=== PATIENT | female | born 1930 | race Caucasian/White ===

== ENCOUNTER 2017-07-31 16:55 | Inpatient (IN) | payer MEDICARE, OTHER ==
[2017-07-31] MEDS: IV NORMAL SALINE 1000ML BAG 1,000 ML IV (17:29)
[2017-07-31] MEDS: METOPROLOL TARTRATE 5 MG/5 ML VIAL. IVP (17:32)
[2017-07-31 18:08] LABS: ADD MAN DIFF? NO
[2017-07-31 18:10] LABS: BASO % 0 % (0-3); EOS % 0 % (0-3); HEMATOCRIT 43.3 % (36.0-47.0); HEMOGLOBIN 13.3 g/dL (12.0-15.5); LYMPH # 0.6 x10^3/uL (1.0-4.8); LYMPH % 8 % (24-48); MEAN CORPUSCULAR HEMOGLOBIN 28 pg (25-35); MEAN CORPUSCULAR HGB CONC 31 g/dL (31-37); MEAN CORPUSCULAR VOLUME 91 fL (79-100); MONO # 0.6 x10^3/uL (0.0-1.1); MONO % 7 % (0-9); NEUT # 7.1 x10^3uL (1.8-7.7); NEUT % 85 % (31-73); PLATELET COUNT 163 x10^3/uL (140-400); RED BLOOD COUNT 4.76 x10^6/uL (3.50-5.40); RED CELL DISTRIBUTION WIDTH 20.6 % (11.5-14.5); WHITE BLOOD COUNT 8.4 x10^3/uL (4.0-11.0)
[2017-07-31 18:21] LABS: ANION GAP 14 (6-14); BLOOD UREA NITROGEN 30 mg/dL (7-20); BUN/CREATININE RATIO 19 (6-20); CALCIUM 9.2 mg/dL (8.5-10.1); CARBON DIOXIDE 23 mmol/L (21-32); CHLORIDE 106 mmol/L (98-107); CREATININE 1.6 mg/dL (0.6-1.0); GFR 30.5; GLUCOSE 96 mg/dL (70-99); POTASSIUM 4.9 mmol/L (3.5-5.1); SODIUM 143 mmol/L (136-145)
[2017-07-31 18:27] LABS: ALBUMIN 3.4 g/dL (3.4-5.0); ALBUMIN/GLOBULIN RATIO 1.1 (1.0-1.7); ALK PHOS 71 U/L (46-116); ALT (SGPT) 22 U/L (14-59); AST (SGOT) 32 U/L (15-37); MAGNESIUM 2.1 mg/dL (1.8-2.4); TOTAL BILIRUBIN 0.5 mg/dL (0.2-1.0); TOTAL PROTEIN 6.6 g/dL (6.4-8.2)
[2017-07-31 18:29] LABS: TROPONINI 0.019 ng/mL (0.000-0.055)
[2017-07-31 18:34] LABS: CREATINE KINASE 100 U/L (26-192)
[2017-07-31 18:34] LABS: NT-PRO BNP 24587 pg/mL (0-449)
[2017-07-31 18:37] LABS: PLT ESTIMATE ADEQUATE (ADEQUATE)
[2017-07-31 18:38] LABS: ANISOCYTOSIS MOD; OVALOCYTES FEW; POIKILOCYTOSIS SLIGHT
[2017-07-31] MEDS ORDERED: IV NORMAL SALINE 1000ML BAG 1,000 ML IV (19:07)
[2017-07-31] MEDS ORDERED: ACETAMINOPHEN 325 MG TABLET. PO (19:15)
[2017-07-31] MEDS ORDERED: ONDANSETRON PF 4 MG/2 ML VIAL. IV (19:15)
[2017-07-31] MEDS ORDERED: METOPROLOL TART IMMED RELEASE 50 MG TABLET. PO (21:45)
[2017-08-01 03:31] LABS: ADD MAN DIFF? NO
[2017-08-01 03:33] LABS: BASO % 0 % (0-3); EOS # 0.1 x10^3/uL (0.0-0.7); EOS % 1 % (0-3); HEMATOCRIT 41.8 % (36.0-47.0); HEMOGLOBIN 12.8 g/dL (12.0-15.5); LYMPH # 0.7 x10^3/uL (1.0-4.8); LYMPH % 9 % (24-48); MEAN CORPUSCULAR HEMOGLOBIN 28 pg (25-35); MEAN CORPUSCULAR HGB CONC 31 g/dL (31-37); MEAN CORPUSCULAR VOLUME 91 fL (79-100); MONO # 0.6 x10^3/uL (0.0-1.1); MONO % 8 % (0-9); NEUT # 6.1 x10^3uL (1.8-7.7); NEUT % 82 % (31-73); PLATELET COUNT 159 x10^3/uL (140-400); RED BLOOD COUNT 4.59 x10^6/uL (3.50-5.40); RED CELL DISTRIBUTION WIDTH 20.3 % (11.5-14.5); WHITE BLOOD COUNT 7.4 x10^3/uL (4.0-11.0)
[2017-08-01] MEDS: METOPROLOL TART IMMED RELEASE 50 MG TABLET. PO ×3 (03:41→12:00)
[2017-08-01 03:54] LABS: ANION GAP 8 (6-14); BLOOD UREA NITROGEN 28 mg/dL (7-20); CALCIUM 8.7 mg/dL (8.5-10.1); CARBON DIOXIDE 27 mmol/L (21-32); CHLORIDE 109 mmol/L (98-107); CREATININE 1.6 mg/dL (0.6-1.0); GFR 30.5; GLUCOSE 91 mg/dL (70-99); POTASSIUM 4.3 mmol/L (3.5-5.1); SODIUM 144 mmol/L (136-145)
[2017-08-01 09:18] LABS: THYROID STIM HORMONE (TSH) 2.517 uIU/mL (0.358-3.74)
[2017-08-01] MEDS: METOPROLOL TARTRATE 5 MG/5 ML VIAL. IVP ×3 (10:06→14:51)
[2017-08-01] MEDS: ALPRAZolam 0.5 MG TABLET PO ×2 (10:09→10:26)
[2017-08-01] MEDS: ASPIRIN CHEWABLE 81 MG TABLET. PO (10:09)
[2017-08-01] MEDS: LEVOTHYROXINE 88 MCG TABLET PO (10:09)
[2017-08-01] MEDS: METOPROLOL TART IMMED RELEASE 25 MG TABLET. PO ×3 (10:09→23:10)
[2017-08-01] MEDS: ENOXAPARIN 30 MG/0.3 ML SYRINGE. SQ (10:10)
[2017-08-01] MEDS: traMADol 50 MG TABLET PO ×2 (10:14→22:06)
[2017-08-01] MEDS ORDERED: MAGNESIUM SULFATE 2GM 50 ML IV (11:00)
[2017-08-01 11:08] LABS: URIC ACID 7.6 mg/dL (2.6-6.0)
[2017-08-01 13:13] LABS: CHOLESTEROL 114 mg/dL (0-200); HDLC 43 mg/dL (40-60); LDLC 54 mg/dL (0-100); NON-HDL CHOLESTEROL 71 mg/dL (0-129); TRIGLYCERIDES 84 mg/dL (0-150); VLDLC 17 mg/dL (0-40)
[2017-08-01 13:15] LABS: CHOLESTEROL/HDL RATIO 2.7
[2017-08-01] MEDS: FUROSEMIDE 40 MG/4 ML VIAL. IVP (14:44)
[2017-08-01 15:08] LABS: INR 1.2 (0.8-1.1); PROTHROMBIN TIME PATIENT 15.1 SEC (11.7-14.0)
[2017-08-01] MEDS: DIGOXIN IV 500 MCG/2 ML AMPUL. IV (16:29)
[2017-08-01 16:32] LABS: BILIRUBIN,URINE SMALL (NEG); CLARITY,URINE CLEAR; COLOR,URINE AMBER; GLUCOSE,URINE NEGATIVE (NEG); NITRITE,URINE NEGATIVE (NEG); PH,URINE 5.5; PROTEIN,URINE 30 mg/dL (NEG-TRACE); UROBILINOGEN,URINE 0.2 mg/dL (0.2 mg/dL)
[2017-08-01 16:59] LABS: BACTERIA,URINE 0 /HPF (0-FEW); HYALINE CASTS, URINE MODERATE /HPF; RBC,URINE 0 /HPF (0-2); SQUAMOUS EPITHELIAL CELL,UR OCC /LPF
[2017-08-01] MEDS: ALPRAZolam 0.25 MG TABLET PO (22:06)
[2017-08-02] MEDS: METOPROLOL TART IMMED RELEASE 25 MG TABLET. PO ×3 (06:08→18:31)
[2017-08-02] MEDS: LEVOTHYROXINE 88 MCG TABLET PO (06:08)
[2017-08-02 06:17] LABS: HEMOGLOBIN 13.2 g/dL (12.0-15.5)
[2017-08-02 07:16] LABS: ALBUMIN 2.9 g/dL (3.4-5.0); ANION GAP 10 (6-14); BLOOD UREA NITROGEN 34 mg/dL (7-20); CARBON DIOXIDE 26 mmol/L (21-32); CHLORIDE 112 mmol/L (98-107); CREATININE 1.8 mg/dL (0.6-1.0); GFR 26.6; GLUCOSE 77 mg/dL (70-99); MAGNESIUM 2.1 mg/dL (1.8-2.4); SODIUM 148 mmol/L (136-145)
[2017-08-02 07:28] LABS: POTASSIUM 6.1 mmol/L (3.5-5.1)
[2017-08-02] MEDS: SODIUM POLYSTYRENE SULFONATE 15 GM/60 ML ORAL.SUSP. PO (08:00)
[2017-08-02] MEDS: FUROSEMIDE 40 MG/4 ML VIAL. IVP ×2 (08:19→14:02)
[2017-08-02] MEDS: ALPRAZolam 0.25 MG TABLET PO ×3 (08:20→21:15)
[2017-08-02] MEDS: ASPIRIN CHEWABLE 81 MG TABLET. PO (08:20)
[2017-08-02] MEDS: ENOXAPARIN 30 MG/0.3 ML SYRINGE. SQ (08:20)
[2017-08-02 12:34] LABS: POTASSIUM 5.1 mmol/L (3.5-5.1)
[2017-08-02 14:24] LABS: TOTAL PROTEIN CREATININE RATIO 289 mg/g creat (0-200); UR CREATININE RD 202.1 mg/dL (Not Estab.); UR PROTEIN RD 58.5 mg/dL (Not Estab.)
[2017-08-02] MEDS: traMADol 50 MG TABLET PO (21:15)
[2017-08-03 05:15] LABS: BASO % 0 % (0-3); EOS # 0.1 x10^3/uL (0.0-0.7); EOS % 1 % (0-3); HEMATOCRIT 41.5 % (36.0-47.0); HEMOGLOBIN 13.2 g/dL (12.0-15.5); LYMPH # 0.4 x10^3/uL (1.0-4.8); LYMPH % 7 % (24-48); MEAN CORPUSCULAR HEMOGLOBIN 28 pg (25-35); MEAN CORPUSCULAR HGB CONC 32 g/dL (31-37); MEAN CORPUSCULAR VOLUME 88 fL (79-100); MONO # 0.4 x10^3/uL (0.0-1.1); MONO % 7 % (0-9); NEUT # 5.3 x10^3uL (1.8-7.7); NEUT % 85 % (31-73); PLATELET COUNT 138 x10^3/uL (140-400); RED BLOOD COUNT 4.72 x10^6/uL (3.50-5.40); RED CELL DISTRIBUTION WIDTH 19.4 % (11.5-14.5); WHITE BLOOD COUNT 6.3 x10^3/uL (4.0-11.0)
[2017-08-03 05:23] LABS: ADD MAN DIFF? YES
[2017-08-03 05:36] LABS: ALBUMIN 2.7 g/dL (3.4-5.0); ANION GAP 8 (6-14); BLOOD UREA NITROGEN 38 mg/dL (7-20); CALCIUM 8.3 mg/dL (8.5-10.1); CARBON DIOXIDE 33 mmol/L (21-32); CHLORIDE 104 mmol/L (98-107); CREATININE 1.7 mg/dL (0.6-1.0); GFR 28.4; GLUCOSE 57 mg/dL (70-99); MAGNESIUM 1.6 mg/dL (1.8-2.4); PHOSPHORUS 3.6 mg/dL (2.6-4.7); POTASSIUM 3.8 mmol/L (3.5-5.1); SODIUM 145 mmol/L (136-145)
[2017-08-03] MEDS: MAGNESIUM SULFATE 2GM 50 ML IV (06:12)
[2017-08-03] MEDS: LEVOTHYROXINE 88 MCG TABLET PO (06:13)
[2017-08-03] MEDS: METOPROLOL TART IMMED RELEASE 25 MG TABLET. PO ×3 (06:13→12:00)
[2017-08-03] MEDS: ENOXAPARIN 30 MG/0.3 ML SYRINGE. SQ (09:21)
[2017-08-03] MEDS: ASPIRIN CHEWABLE 81 MG TABLET. PO (09:21)
[2017-08-03] MEDS: ALPRAZolam 0.25 MG TABLET PO ×3 (09:21→21:03)
[2017-08-03] MEDS: FUROSEMIDE 40 MG/4 ML VIAL. IVP (09:22)
[2017-08-03 11:17] LABS: % ATYL 1 % (0-0); % BANDS 4 % (0-9); % LYMPHS 9 % (24-48); % MONOS 7 % (0-10); % SEGS 79 % (35-66)
[2017-08-03 11:18] LABS: PLT ESTIMATE ADEQUATE (ADEQUATE)
[2017-08-03] MEDS: FUROSEMIDE 40 MG TABLET. PO (14:00)
[2017-08-03] MEDS: traMADol 50 MG TABLET PO (21:03)
[2017-08-04 05:02] LABS: ADD MAN DIFF? NO
[2017-08-04 05:16] LABS: BASO % 1 % (0-3); EOS % 1 % (0-3); HEMATOCRIT 38.3 % (36.0-47.0); HEMOGLOBIN 12.4 g/dL (12.0-15.5); LYMPH # 0.6 x10^3/uL (1.0-4.8); LYMPH % 10 % (24-48); MEAN CORPUSCULAR HEMOGLOBIN 28 pg (25-35); MEAN CORPUSCULAR HGB CONC 32 g/dL (31-37); MEAN CORPUSCULAR VOLUME 86 fL (79-100); MONO # 0.4 x10^3/uL (0.0-1.1); MONO % 7 % (0-9); NEUT # 4.8 x10^3uL (1.8-7.7); NEUT % 82 % (31-73); PLATELET COUNT 134 x10^3/uL (140-400); RED BLOOD COUNT 4.45 x10^6/uL (3.50-5.40); RED CELL DISTRIBUTION WIDTH 19.8 % (11.5-14.5); WHITE BLOOD COUNT 5.8 x10^3/uL (4.0-11.0)
[2017-08-04 05:52] LABS: ALBUMIN 2.7 g/dL (3.4-5.0); ANION GAP 9 (6-14); BLOOD UREA NITROGEN 38 mg/dL (7-20); CALCIUM 7.9 mg/dL (8.5-10.1); CARBON DIOXIDE 30 mmol/L (21-32); CHLORIDE 102 mmol/L (98-107); CREATININE 1.7 mg/dL (0.6-1.0); GFR 28.4; GLUCOSE 90 mg/dL (70-99); PHOSPHORUS 2.8 mg/dL (2.6-4.7); POTASSIUM 3.6 mmol/L (3.5-5.1); SODIUM 141 mmol/L (136-145)
[2017-08-04 05:55] LABS: MAGNESIUM 1.8 mg/dL (1.8-2.4)
[2017-08-04] MEDS: LEVOTHYROXINE 88 MCG TABLET PO (07:14)
[2017-08-04] MEDS: ASPIRIN CHEWABLE 81 MG TABLET. PO (08:01)
[2017-08-04] MEDS: ALPRAZolam 0.25 MG TABLET PO ×2 (08:50→14:06)
[2017-08-04] MEDS: ENOXAPARIN 30 MG/0.3 ML SYRINGE. SQ (08:50)
[2017-08-04] MEDS: FUROSEMIDE 40 MG TABLET. PO ×2 (08:50→14:06)
[2017-08-04] MEDS: METOPROLOL SUCC 24HR ER 25 MG TAB.ER.24H. PO (08:51)
== END 2017-08-04 18:40 | disposition home or self-care (01) | DRG 682 ==
LOC: ER 16:55 → 2 SOUTH 18:26
DX: N17.9 Acute kidney failure, unspecified (principal); I50.43 Acute on chronic combined systolic (congestive) and diastolic (congestive) heart failure; R18.8 Other ascites; I48.0 Paroxysmal atrial fibrillation; I42.9 Cardiomyopathy, unspecified; I13.0 Hypertensive heart and chronic kidney disease with heart failure and stage 1 through stage 4 chronic kidney disease, or unspecified chronic kidney disease; J98.11 Atelectasis; N18.4 Chronic kidney disease, stage 4 (severe); F03.90 Unspecified dementia, unspecified severity, without behavioral disturbance, psychotic disturbance, mood disturbance, and anxiety; E03.9 Hypothyroidism, unspecified; Z60.2 Problems related to living alone; F41.9 Anxiety disorder, unspecified; M19.90 Unspecified osteoarthritis, unspecified site; R29.6 Repeated falls; Z79.82 Long term (current) use of aspirin; Z96.1 Presence of intraocular lens; Z85.048 Personal history of other malignant neoplasm of rectum, rectosigmoid junction, and anus; Z86.010 Personal history of colon polyps; Z86.73 Personal history of transient ischemic attack (TIA), and cerebral infarction without residual deficits; Z90.710 Acquired absence of both cervix and uterus; Z91.81 History of falling; Z92.21 Personal history of antineoplastic chemotherapy; Z90.49 Acquired absence of other specified parts of digestive tract; Z88.8 Allergy status to other drugs, medicaments and biological substances
CPT/HCPCS: 36415; 71045; 76770; 80048; 80053; 80061; 80069; 81001; 82553; 82570; 83735; 83880; 84132; 84156; 84300; 84443; 84484; 84550; 85007; 85018; 85025; 85610; 87086; 93005; 93306; 93970; 94618; 96361; 96374; 97162-GP; 97165-GO; 99285; 99285-25; J1160; J1650; J1940; J3475; J3490; J7030